=== PATIENT | female | born 1985 | race Two or more races ===

== ENCOUNTER 2017-01-03 08:38 | Outpatient (CLI) ==
[2017-01-03 12:32] LABS: FLU INTERNAL QC INTERNAL QC VALID; RAPID FLU A NEGATIVE (NEGATIVE); RAPID FLU B NEGATIVE (NEGATIVE)
== END 2017-01-03 08:39 | disposition home or self-care (01) ==
LOC: LAB 08:38
PROVIDERS: ATTEND Nurse Practitioner Family
DX: J02.9 Acute pharyngitis, unspecified (principal)
CPT/HCPCS: 87651; 87804; 87880

== ENCOUNTER 2017-06-28 13:05 | Outpatient (CLI) ==
[2017-06-28 13:13] LABS: BASOPHILS % (AUTO) 0.7 % (0.0-3.0); EOSINOPHILS # (AUTO) 0.1 K/ul (0.0-0.7); EOSINOPHILS % (AUTO) 1.3 % (0.0-7.0); HEMOGLOBIN 12.3 g/dl (12.0-16.0); LYMPHOCYTES # (AUTO) 1.7 K/uL (0.60-3.4); LYMPHOCYTES % (AUTO) 36.6 (10.0-50.0); MEAN CORPUSCULAR HEMOGLOBIN 27.2 pg (27.0-31.0); MEAN CORPUSCULAR HGB CONC 33.2 (31.8-35.4); MEAN CORPUSCULAR VOLUME 81.9 fl (81.0-99.0); MONOCYTES # (AUTO) 0.4 K/uL (0.4-2.0); MONOCYTES % (AUTO) 8.1 (0-10); NEUTROPHILS # (AUTO) 2.4 K/ul (2.0-6.9); NEUTROPHILS % (AUTO) 53.3; PLATELET COUNT 190 10^3/uL (140-440); RED BLOOD COUNT 4.52 10^6/ul (4.20-5.40); WHITE BLOOD COUNT 4.54 K/ul (4.6-10.2)
[2017-06-28 13:50] LABS: ALBUMIN 4.2 g/dL (3.4-5.0); ALBUMIN/GLOBULIN RATIO 1.2; BILIRUBIN,TOTAL 0.53 mg/dL (0.00-1.20); BUN/CREATININE RATIO 22.78; CALCIUM 9.2 mg/dL (8.2-10.2); CREATININE 0.79 mg/dL (0.60-1.30); TOTAL PROTEIN 7.7 g/dL (6.4-8.2)
== END 2017-06-28 13:06 | disposition home or self-care (01) ==
LOC: LAB 13:05
PROVIDERS: ATTEND Nurse Practitioner Family
DX: R53.83 Other fatigue (principal)
CPT/HCPCS: 36415; 80053; 82306; 82607; 84439; 84443; 85025

== ENCOUNTER 2017-10-19 16:26 | Outpatient (CLI) | END 2017-10-19 16:27 | disposition home or self-care (01) | LOC: LAB 16:26 | PROVIDERS: ATTEND Nurse Practitioner Family | DX: R51 Headache (principal); R53.83 Other fatigue | CPT/HCPCS: 87502; 87651 ==

== ENCOUNTER 2018-12-05 16:01 | Outpatient (CLI) | END 2018-12-05 16:02 | disposition home or self-care (01) | LOC: RHC-LAB 16:01 | PROVIDERS: ATTEND Nurse Practitioner Family | DX: R53.83 Other fatigue (principal); R23.8 Other skin changes; Z86.2 Personal history of diseases of the blood and blood-forming organs and certain disorders involving the immune mechanism | CPT/HCPCS: 36415; 80053; 80061; 82306; 82607; 82728; 82746; 83540; 83550; 84443; 84466; 85025; 85045 ==

== ENCOUNTER 2019-02-06 15:50 | Outpatient (CLI) ==
--- NOTE | 2019-02-06 16:31 | DI ---
EXAM: Abdomen one view HISTORY: Hematuria, unspecified COMPARISON: None TECHNIQUE: Single view abdomen was performed. FINDINGS: There are no dilated loops of small bowel. There is air and stool throught the colon. The re are no abnormal calcifications. There are no acute abnormalities of the bones. IMPRESSION: No acute abnormality identified.
== END 2019-02-06 15:51 | disposition home or self-care (01) ==
LOC: RAD 15:50
PROVIDERS: ATTEND Nurse Practitioner Family
DX: R31.9 Hematuria, unspecified (principal)

== ENCOUNTER 2019-02-15 08:06 | Outpatient (CLI) ==
--- NOTE | 2019-02-15 09:20 | US ---
EXAM: Renal ultrasound. History: Recurrent and persistent hematuria. Technique: Multiple sonographic images through the kidneys were obtained. Color duplex Doppler was used to interrogate vascular flow. Findings: Neither ureteral jet was seen in the bladder. No bladder wall thickening. The right kidney measures 10 cm in long length demonstrating normal cortical echogenicity without adriel dence for hydronephrosis, mass or shadowing calculus. The left kidney measures 11.2 cm in long length demonstrating normal cortical echogenicity without ev idence for hydronephrosis, mass or shadowing calculus. Impression: Sonographically normal kidneys
== END 2019-02-15 08:07 | disposition home or self-care (01) ==
LOC: RAD 08:06
PROVIDERS: ATTEND Nurse Practitioner Family
DX: N02.9 Recurrent and persistent hematuria with unspecified morphologic changes (principal)

== ENCOUNTER 2019-02-19 08:08 | Outpatient (CLI) | END 2019-02-19 08:09 | disposition home or self-care (01) | LOC: RHC-LAB 08:08 | PROVIDERS: ATTEND General Practice | DX: D64.9 Anemia, unspecified (principal); E78.5 Hyperlipidemia, unspecified | CPT/HCPCS: 36415; 80053; 80061; 82607; 82728; 82746; 83540; 83550; 84466; 85025; 85045 ==